=== PATIENT | male | born 1940 | race Caucasian/White ===

== ENCOUNTER → 2016-12-04 | Day surgery (SDC) | payer MEDICARE ==
[~2016-12-04] MED LIST: ACETAMINOPHEN 1000 MG/100 ML VIAL IV ONE; BUPIVACAINE LIPOSOME PF 1.3% 20 ML VIAL ONE; BUPIVACAINE/EPINEPHRINE 0.25% PF 30 ML VIAL ONE; KETOROLAC TROMETHAMINE 30 MG/ML (IVP) VIAL ONE; LACTATED RINGER'S 1000 ML INJ 1,000 ML ONE; LEVO.1 PO; MIDAZOLAM HCL 2 MG/2 ML VIAL ONE; ONDANSETRON HCL 4 MG/2 ML VIAL IV PUSH ONE; PROPOFOL 200 MG/20 ML AMP IV ONE; SODIUM CHLORIDE 0.9% 20 ML VIAL ONE; TAB-TAB PO; ceFAZolin 2 GM PREMIX 50 ML ONE
--- NOTE | 2016-12-07 10:14 | MP ---
cc: COLLEEN JOYA DATE OF SURGERY: 12/04/2016 PREOPERATIVE DIAGNOSIS Left inguinal hernia. POSTOPERATIVE DIAGNOSIS Left inguinal hernia. PROCEDURE Repair of left inguinal hernia with ProGrip mesh. SURGEON Dr. Joya. GOVERNMENT SERVICE EXECUTIVE Reinaldo Quigley, MS III ANESTHESIA General. OPERATIVE FINDINGS The patient was found to have a very large direct inguinal hernia with a completely patulous internal oblique and inguinal floor. No other abnormalities were noted and no indirect hernia was identified. The patient was also noted to have testicular atrophy. OPERATIVE PROCEDURE The patient was brought to the operating room and after satisfactory general anesthesia had been obtained, the abdomen was prepped and draped in the usual sterile fashion. 1.3% Exparel was used to infiltrate the skin for local anesthesia. The left transverse inguinal incision was made and carried out sharply through the subcutaneous tissue with the cautery being used for hemostasis. Incision was deepened to the external oblique fascia which was seen to be quite splayed out. It was opened in the direction of its fibers down to and through the external ring. The underside of the fascia was cleaned and the spermatic cord then isolated with a Antione drain. The direct hernia sac was attached to the surrounding structures and was dissected free from the cord structures as well as from the inguinal floor. Circumferentially incised with the cautery to allow reduction within the properitoneal space. Once the hernia and sac had been reduced within the properitoneal space, the internal oblique was brought into close approximation with the shelving edge of the inguinal ligament using interrupted 0 Vicryl sutures. Once the inguinal floor and the internal ring had been recreated in this fashion a piece of ProGrip mesh was cut to the appropriate shape and secured anterior to the inguinal floor by pressing its posterior Vicryl hooks into the surrounding tissue. Once it was seated correctly single suture of 0 Prolene was placed between the mesh and the pubis and another one just lateral to the cord where the mesh was attached to the shelving edge of the inguinal ligament. Hemostasis was checked for and found to be satisfactory. As much of the external oblique fascia as could be closed was closed with running 3-0 Vicryl suture. The subcutaneous tissue was then approximated with interrupted 3-0 Vicryl suture and the skin closed with interrupted 4-0 PDS subcuticular stitches. Steri-Strips were placed and the patient was then awakened and taken from the operating room, in satisfactory condition, having tolerated the procedure without problem. Estimated blood loss was less than 5 mL. The instrument count, sponge count, needle counts were reported as being correct x2 at the end of the procedure. MD MARION Mello/JENS /11:00 AM /10:01 AM
== END | disposition home or self-care (01) ==
LOC: ESDC 07:10
PROVIDERS: ATTEND Surgery
DX: K40.90 Unilateral inguinal hernia, without obstruction or gangrene, not specified as recurrent (principal)
CPT/HCPCS: 00830; 49505; C1781; C9290; J0131; J0690; J1885; J2250; J2405; J3010; J7120